=== PATIENT | female | born 1945 | race Caucasian/White ===

== ENCOUNTER 2017-10-15 16:38 | Emergency (ER) | payer BC, OTHER ==
[~2017-10-15] VITALS: Ht 165.1 cm; Wt 95.0 kg
[2017-10-15 17:13] VITALS: BP 138/78; PULSE 72; RESP 16; TEMP 98.7; O2SAT 99
[2017-10-15 18:05] LABS: AUTOMATED NEUTROPHIL # 4.3 TH/MM3 (1.8-7.7); BASOPHIL # 0.1 TH/MM3 (0-0.2); BASOPHIL % 0.7 % (0.0-2.0); EOSINOPHIL # 0.1 TH/MM3 (0-0.4); EOSINOPHIL % 1.4 % (0.0-4.0); HEMATOCRIT 39.6 % (35.0-46.0); HEMOGLOBIN 13.8 GM/DL (11.6-15.3); LYMPH % 37.4 % (9.0-44.0); LYMPHOCYTE # 3.1 TH/MM3 (1.0-4.8); MEAN CELL VOLUME 89.7 FL (80.0-100.0); MEAN CORPUSCULAR HEMOGLOBIN 31.2 PG (27.0-34.0); MEAN CORPUSCULAR HGB CONC 34.8 % (32.0-36.0); MEAN PLATELET VOLUME 8.6 FL (7.0-11.0); MONO % 8.7 % (0.0-8.0); MONOCYTE # 0.7 TH/MM3 (0-0.9); NEUT % 51.8 % (16.0-70.0); PLATELET COUNT 284 TH/MM3 (150-450); RED BLOOD COUNT 4.41 MIL/MM3 (4.00-5.30); RED CELL DISTRIBUTION WIDTH 13.4 % (11.6-17.2); WHITE BLOOD COUNT 8.2 TH/MM3 (4.0-11.0)
[2017-10-15 18:31] LABS: AST (GOT) 25 U/L (15-37); BICARBONATE 28.1 MEQ/L (21.0-32.0); BLOOD UREA NITROGEN 18 MG/DL (7-18); CALCIUM 9.3 MG/DL (8.5-10.1); CHLORIDE 105 MEQ/L (98-107); CREATININE 0.92 MG/DL (0.50-1.00); GLOMERULAR FILTRATION RATE 60 ML/MIN (>89); GLUCOSE,RANDOM 84 MG/DL (74-106); SODIUM (NA) 142 MEQ/L (136-145)
[2017-10-15 18:32] LABS: ALT (GPT) 30 U/L (10-53)
[2017-10-15 18:34] LABS: ALKALINE PHOSPHATASE 90 U/L (45-117); TOTAL PROTEIN 7.3 GM/DL (6.4-8.2)
[2017-10-15 18:59] LABS: BILIRUBIN, URINE NEG (NEG); BLOOD, URINE NEG (NEG); GLUCOSE,URINE NEG (NEG); KETONE, URINE 10 mg/dL (NEG); MUCUS URINE FEW /lpf (OCC); NITRITE,URINE NEG (NEG); SQUAMOUS EPITHELIAL CELL URINE 3 /hpf (0-5); URINE COLOR YELLOW (YELLW/STRAW); URINE LEUKOCYTE ESTERASE MOD (NEG)
--- NOTE | 2017-10-15 19:18 | PD ---
HPI Chief Complaint: Psychiatric Symptoms Time Seen by Provider: 18:40 Travel History International Travel<30 days: No Contact w/Intl Traveler<30days: No Traveled to known affect area: No History of Present Illness HPI 71-year-old female presents to the emergency Department under Mcmanus act by her primary care physician. The patient states that she went to see her primary care physician for right shoulder pain and wanted an x-ray. She states that he asked her if she had ever felt suicidal and she states she did a long time ago. The patient denies any current suicidal or homicidal ideations. She does report right shoulder pain for 2 weeks. She states her chiropractor "cracked". She is concerned that is fractured. She denies a traumatic injury. Patient denies any radiation of the pain. Movement exacerbates pain. Rest will help alleviate pain. Moderate severity. PFSH Past Medical History Depression: Yes Immunizations Current: Yes Past Surgical History Appendectomy: Yes Cholecystectomy: Yes Hysterectomy: Yes Other Surgery: Yes (OOPHERECTOMY) Social History Alcohol Use: No Tobacco Use: No Substance Use: No Allergies-Medications (Allergen,Severity, Reaction): Coded Allergies: No Allergy Information Available (Unverified , 10/15/17) Reported Meds & Prescriptions Reported Meds & Active Scripts Active Active Prescriptions or Reported Medications Unobtainable Review of Systems Except as stated in HPI: all other systems reviewed are Neg Physical Exam Narrative GENERAL: Well-nourished, well-developed female patient, afebrile. SKIN: Focused skin assessment warm/dry. HEAD: Normocephalic. Atraumatic. EYES: No scleral icterus. No injection or drainage. NECK: Supple, trachea midline. No JVD or lymphadenopathy. CARDIOVASCULAR: Regular rate and rhythm without murmurs, gallops, or rubs. RESPIRATORY: Breath sounds equal bilaterally. No accessory muscle use. Lungs sounds are clear to auscultation. GASTROINTESTINAL: Abdomen soft, non-tender, nondistended. MUSCULOSKELETAL: No cyanosis, or edema. PSYCHIATRIC: No delusional thought processes. No hallucinations. Data Data Last Documented VS Vital Signs Date Time Temp Pulse Resp B/P (MAP) Pulse Ox O2 Delivery O2 Flow Rate FiO2 10/15/17 17:13 98.7 72 16 138/78 (98) 99 Room Air Orders Orders Complete Blood Count With Diff (10/15/17 16:41) Comprehensive Metabolic Panel (10/15/17 16:41) Urinalysis - C+S If Indicated (10/15/17 16:41) Psych Screen (10/15/17 16:41) Drug Screen, Random Urine (10/15/17 16:41) Alcohol (Ethanol) (10/15/17 16:41) Urine Culture (10/15/17 18:25) Shoulder, Complete (>2vws) (10/15/17 ) Labs Laboratory Tests Test 10/15/17 17:25 10/15/17 18:25 White Blood Count 8.2 TH/MM3 Red Blood Count 4.41 MIL/MM3 Hemoglobin 13.8 GM/DL Hematocrit 39.6 % Mean Corpuscular Volume 89.7 FL Mean Corpuscular Hemoglobin 31.2 PG Mean Corpuscular Hemoglobin Concent 34.8 % Red Cell Distribution Width 13.4 % Platelet Count 284 TH/MM3 Mean Platelet Volume 8.6 FL Neutrophils (%) (Auto) 51.8 % Lymphocytes (%) (Auto) 37.4 % Monocytes (%) (Auto) 8.7 % Eosinophils (%) (Auto) 1.4 % Basophils (%) (Auto) 0.7 % Neutrophils # (Auto) 4.3 TH/MM3 Lymphocytes # (Auto) 3.1 TH/MM3 Monocytes # (Auto) 0.7 TH/MM3 Eosinophils # (Auto) 0.1 TH/MM3 Basophils # (Auto) 0.1 TH/MM3 CBC Comment DIFF FINAL Differential Comment Blood Urea Nitrogen 18 MG/DL Creatinine 0.92 MG/DL Random Glucose 84 MG/DL Total Protein 7.3 GM/DL Albumin 4.0 GM/DL Calcium Level 9.3 MG/DL Alkaline Phosphatase 90 U/L Aspartate Amino Transf (AST/SGOT) 25 U/L Alanine Aminotransferase (ALT/SGPT) 30 U/L Total Bilirubin 1.0 MG/DL Sodium Level 142 MEQ/L Potassium Level 3.4 MEQ/L Chloride Level 105 MEQ/L Carbon Dioxide Level 28.1 MEQ/L Anion Gap 9 MEQ/L Estimat Glomerular Filtration Rate 60 ML/MIN Ethyl Alcohol Level LESS THAN 3 MG/DL Urine Color YELLOW Urine Turbidity CLEAR Urine pH 8.0 Urine Specific [place] 1.016 Urine Protein NEG mg/dL Urine Glucose (UA) NEG mg/dL Urine Ketones 10 mg/dL Urine Occult Blood NEG Urine Nitrite NEG Urine Bilirubin NEG Urine Urobilinogen 2.0 MG/DL Urine Leukocyte Esterase MOD Urine RBC LESS THAN 1 /hpf Urine WBC 12 /hpf Urine Squamous Epithelial Cells 3 /hpf Urine Mucus FEW /lpf Microscopic Urinalysis Comment CULTURE INDICATED Urine Opiates Screen NEG Urine Barbiturates Screen NEG Urine Amphetamines Screen NEG Urine Benzodiazepines Screen NEG Urine Cocaine Screen NEG Urine Cannabinoids Screen NEG MDM Medical Decision Making Medical Screen Exam Complete: Yes Emergency Medical Condition: Yes Medical Record Reviewed: Yes Differential Diagnosis Depression versus anxiety versus medical clearance versus UTI Narrative Course 71-year-old female presents to the emergency department under Mcmanus act for psychiatric evaluation. CBC shows no acute abnormality. CMP shows no acute abnormality. Urine drug screen is negative. Alcohol level is less than 3. UA shows moderate leukocyte esterase, 12 WBC. Patient will be started on Keflex for UTI. X-ray of the right shoulder shows advanced osteoarthritis. Patient is Nehemiah cleared for psychiatric screening and disposition. Mental health screening discussed with the patient. Psychiatric screen ordered. Diagnosis Primary Impression: Medical clearance for psychiatric admission Additional Impression: UTI (urinary tract infection) Qualified Codes: N30.00 - Acute cystitis without hematuria Scripts Unable to Obtain Active Prescriptions or Reported Meds Condition: Stable Lina Barone Oct 15, 2017 19:18
--- NOTE | 2017-10-15 20:26 | RADRPT ---
EXAM DATE/TIME: 10/15/2017 19:35 [facility] COMPARISON: No previous studies available for comparison. INDICATIONS : Right shoulder pain with no history of trauma. MEDICAL HISTORY : None. SURGICAL HISTORY : None. ENCOUNTER: Initial ACUITY: 2 months PAIN SCORE: 10/10 LOCATION: Right upper extremity FINDINGS: Advanced osteoarthritis of the right shoulder with joint space narrowing and osteophyte formation. Ca lcified loose bodies present. CONCLUSION: 1. Advanced osteoarthritis right shoulder. Al Calle MD on October 15, 2017 at 20:25 Board Certified Radiologist. This report was verified electronically.
[2017-10-15] MEDS ORDERED: CEPHALEXIN MONOHYDRATE 500 MG CAP PO ONE (21:00)
[2017-10-15] MEDS ORDERED: IBUPROFEN 600 MG TAB PO ONE (22:00)
[2017-10-15] MEDS ORDERED: HYDR12.56 PO (23:06)
[2017-10-15] MEDS ORDERED: AMIT25TA9 PO (23:06)
[2017-10-15] MEDS ORDERED: ESCI20TA PO (23:06)
[2017-10-15] MEDS ORDERED: VALS1TAB65 PO (23:06)
[2017-10-15] MEDS ORDERED: LOVA40TA PO (23:06)
[2017-10-15] MEDS ORDERED: TEMA30CA PO (23:06)
[2017-10-15] MEDS ORDERED: BUSP5TAB PO (23:06)
[2017-10-15] MEDS ORDERED: ALPRAZolam 0.5 MG TAB PO ONE (23:15)
--- NOTE | 2017-10-16 12:17 | PD ---
History of Present Illness Chief Complaint: Moderate depression, recurrent episode Time Seen by Provider: 11:00 Travel History International Travel<30 Days: No Contact w/Intl Traveler<30days: No Known affected area: No Legal Status Legal Status: Involuntary Mcmanus Act Signed By: Yenni VASQUES ([id number]) KORI ([id number]) Mcmanus Act Comment: CERTIFICATE OF PROFESSIONAL INITIATING INVOLUNTARY EXAMINATION10/15/17@6113 History of Present Illness: Ms. Farfan is a 71-year-old, , female who was sent to the emergency department, from her doctor's office, for possible suicidal ideation. Reviewed electronic medical record and labs. Discussed patient's case with staff. Patient was examined and D 44 in the main ED. Patient sitting up on the stretcher awake alert and oriented. Her speech is clear, organized, logical. Patient is disheveled but clean. Per patient, she sleeps approximately 8 hours a night, and her appetite is "too good". She reports that she has been having financial problems of late, has her house up for sale, and had to put her car in the shop. She reports feeling "a little down" but denies having any thoughts of self-harm. She states that she went to her doctor 's office yesterday to be seen for trouble with her right arm. She was seen by a new nurse practitioner who she reports asked her if she had ever had thoughts of committing suicide. Ms. Farfan reports that she replied in relation to 7 years ago just after her had . However, she believes the [employer]K TECHNICIAN misunderstood her and felt that she was suicidal at this time. She denies any SI, HI, auditory or visual hallucinations. I cannot elicit any delusions at this time. She denies any previous suicidal attempts which was corroborated with her daughter. She is future oriented talking about her plans to sell her house and move into an efficiency apartment. She denies smoking drinking or using illicit substances. She reports that she is close to her daughter who lives nearby and is supportive. She expresses concern about her cat and dog, stating "I need to get home and walk my dog". Spoke by phone with her daughter Gely Camacho. Daughter reports that as a rule Ms. Farfan tends to be negative, and she understands how this could have been misinterpreted by a new provider. Her daughter denies having any concerns at this point that she would harm herself. She does state that her mother has made vague statements in the past that she "wishes she could join her and see him again". She relates that there have been no attempts, no plans, no outright threats, and admits that her mother remains future oriented. Patient's PCP is Dr. Castillo who has been treating her on an outpatient basis with antidepressants. Patient relates that there is been an ongoing titration process and her next appointment is in December. She reports being compliant with her medications. [facility] Past Medical History Narrative Medical Patient medically cleared by the ED. Depression: Yes Immunizations Current: Yes Past Surgical History Appendectomy: Yes Cholecystectomy: Yes Hysterectomy: Yes Other Surgery: Yes (OOPHERECTOMY) Psychiatric History Psychiatric History History of moderate depression. Treated outpatient. Hx Psychiatric Treatment: SX OF DEPRESSION History of Inpatient Treatment: No Social History Patient is a who is in the process of selling her house in order to downsize. She lives with a small cat and dog and she seems very attached to. Her daughter lives nearby and she reports being close to her. She denies drinking smoking or using drugs. Hx Alcohol Use: No Hx Tobacco Use: No Hx Substance Use: No Hx of Substance Use Treatment: No Family Psychiatric History She denies any family history of mental illness or suicide. Allergies-Medications (Allergen,Severity, Reaction): Coded Allergies: No Allergy Information Available (Unverified , 10/15/17) Reported Meds & Prescriptions Reported Meds & Active Scripts Active Reported Lovastatin 40 Mg Tab 40 Mg PO DAILY Temazepam 30 Mg Cap 30 Mg PO HS PRN Buspirone (Buspirone HCl) 5 Mg Tab 5 Mg PO BID Hydrochlorothiazide 12.5 Mg Tab 12.5 Mg PO DAILY Valsartan 160 Mg Tab 160 Mg PO DAILY Escitalopram (Escitalopram Oxalate) 20 Mg Tab 20 Mg PO DAILY Amitriptyline (Amitriptyline HCl) 25 Mg Tab 25 Mg PO HS Mental Status Examination Appearance: Appropriate, Disheveled Consciousness: Alert Orientation: x4 Motor Activity: Normal gait Speech: Unremarkable Language: Adequate Fund of Knowledge: Adequate Attention and Concentration: Adequate Memory: Unremarkable Mood: Appropriate, Irritable (At being here) Affect: Appropriate, Euthymic Thought Process & Associations: Intact Thought Content: Appropriate Hallucination Type: None Delusion Type: None Suicidal Ideation: No Suicidal Plan: No Suicidal Intention: No Homicidal Ideation: No Homicidal Plan: No Homicidal Intention: No Insight: Adequate Judgment: Adequate MDM Medical Decision Making Medical Record Reviewed: Yes Assessment/Plan 71-year-old , female sent involuntarily to the ED for possible suicidal ideation. Patient reports that she is not suicidal, homicidal, experiencing audiovisual hallucinations, and does not appear delusional. She states this was simply a miscommunication between her and a new provider. Her speech is clear, logical, and organized. She is alert and oriented. Although, she does report "feeling a little down", patient has several life stressors at this point and seems to be dealing with them appropriately. Discussed case with Dr. Mei from the ED. At this point patient does not meet inpatient criteria. Mcmanus act will be lifted by Dr. Mei who also saw the patient. Discussed plan with patient's daughter who relates that she is comfortable with this decision, and will pick her up upon discharge. Patient provided with a community resource packet and instructed to follow-up outpatient with her primary care physician. She is furthermore advised to return to the ED if her condition worsens. Orders Orders Complete Blood Count With Diff (10/15/17 16:41) Comprehensive Metabolic Panel (10/15/17 16:41) Urinalysis - C+S If Indicated (10/15/17 16:41) Psych Screen (10/15/17 16:41) Drug Screen, Random Urine (10/15/17 16:41) Alcohol (Ethanol) (10/15/17 16:41) Urine Culture (10/15/17 18:25) Shoulder, Complete (>2vws) (10/15/17 ) Cephalexin (Keflex) (10/15/17 21:00) Ibuprofen (Motrin) (10/15/17 22:00) Alprazolam (Xanax) (10/15/17 23:15) Diet Regular Basic (10/16/17 Breakfast) Ed Discharge Order (10/16/17 11:37) Results Vital Signs Date Time Temp Pulse Resp B/P (MAP) Pulse Ox O2 Delivery O2 Flow Rate FiO2 10/16/17 11:50 10/15/17 17:13 98.7 72 16 138/78 (98) 99 Room Air Laboratory Tests Test 10/15/17 17:25 10/15/17 18:25 White Blood Count 8.2 Red Blood Count 4.41 Hemoglobin 13.8 Hematocrit 39.6 Mean Corpuscular Volume 89.7 Mean Corpuscular Hemoglobin 31.2 Mean Corpuscular Hemoglobin Concent 34.8 Red Cell Distribution Width 13.4 Platelet Count 284 Mean Platelet Volume 8.6 Neutrophils (%) (Auto) 51.8 Lymphocytes (%) (Auto) 37.4 Monocytes (%) (Auto) 8.7 Eosinophils (%) (Auto) 1.4 Basophils (%) (Auto) 0.7 Neutrophils # (Auto) 4.3 Lymphocytes # (Auto) 3.1 Monocytes # (Auto) 0.7 Eosinophils # (Auto) 0.1 Basophils # (Auto) 0.1 CBC Comment DIFF FINAL Differential Comment Blood Urea Nitrogen 18 Creatinine 0.92 Random Glucose 84 Total Protein 7.3 Albumin 4.0 Calcium Level 9.3 Alkaline Phosphatase 90 Aspartate Amino Transf (AST/SGOT) 25 Alanine Aminotransferase (ALT/SGPT) 30 Total Bilirubin 1.0 Sodium Level 142 Potassium Level 3.4 Chloride Level 105 Carbon Dioxide Level 28.1 Anion Gap 9 Estimat Glomerular Filtration Rate 60 Ethyl Alcohol Level LESS THAN 3 Urine Color YELLOW Urine Turbidity CLEAR Urine pH 8.0 Urine Specific [place] 1.016 Urine Protein NEG Urine Glucose (UA) NEG Urine Ketones 10 Urine Occult Blood NEG Urine Nitrite NEG Urine Bilirubin NEG Urine Urobilinogen 2.0 Urine Leukocyte Esterase MOD Urine RBC LESS THAN 1 Urine WBC 12 Urine Squamous Epithelial Cells 3 Urine Mucus FEW Microscopic Urinalysis Comment CULTURE INDICATED Urine Opiates Screen NEG Urine Barbiturates Screen NEG Urine Amphetamines Screen NEG Urine Benzodiazepines Screen NEG Urine Cocaine Screen NEG Urine Cannabinoids Screen NEG Date/Time Source Procedure Growth Status 10/15/17 18:25 Urine Random Urine Urine Culture Pending Worksheet Diagnosis Primary Impression: Moderate major depression Psychiatrically Cleared: Yes Referrals: Do Nikia Castillo MD (PCP) call for appointment Departure Forms: Tests/Procedures Patient Instructions: General Instructions Disposition: DISCHARGE HOME Condition: Stable VimalChristen webster Oct 16, 2017 12:17
== END 2017-10-16 12:19 | disposition home or self-care (01) ==
LOC: NEDAMB 16:38 → NEPD 10-16 12:19
DX: F33.1 Major depressive disorder, recurrent, moderate (principal); N30.00 Acute cystitis without hematuria; M25.511 Pain in right shoulder; Z79.899 Other long term (current) drug therapy
CPT/HCPCS: 73030; 80053; 80307; 81001; 85025; 87086; 99284